=== PATIENT | female | born 1955 | race Caucasian/White ===

== ENCOUNTER 2019-09-12 20:19 | Inpatient (IN) | payer SELFPAY ==
[~2019-09-12] VITALS: Ht 167.6 cm; Wt 79.4 kg
[2019-09-12 20:25] VITALS: BP_SYST 138
--- NOTE | 2019-09-12 20:25 | NUR ---
Placed in room 01 . Placed on gambling monitor, blood pressure machine and pulse oximeter. To gown for exam. Side rails up.
--- NOTE | 2019-09-12 20:30 | NUR ---
Dr. Hopper bedside for Pt eval
--- NOTE | 2019-09-12 20:35 | NUR ---
Pt BIB family to ED C/O left sided chest pain with radiation to the throat that began between 6pm and 7pm today. Pain is described as pressure like and noted to be constant since onset. Pain was associated with shortness of breath. Pt also reports feeling hot and cold with sweat when the pain began. She sates shortness of breath has improved upon arrival. No other injuries and or complaints noted VSS no s/s of acute distress Resting on gurney rails up
[2019-09-12] MEDS ORDERED: ASPIRIN 81 MG TAB.CHEW PO ONE (20:45)
[2019-09-12 20:59] LABS: BASOPHILS % (AUTO) 0.4 % (0.0-2.0); EOSINOPHILS % (AUTO) 0.6 % (0.0-4.0); HEMATOCRIT 40.5 % (36-48); HEMOGLOBIN 13.7 g/dL (12.0-16.0); LYMPHOCYTES # (AUTO) 1.5 K/uL (1.0-5.5); LYMPHOCYTES % (AUTO) 19.9 % (20.5-51.5); MEAN CORPUSCULAR HEMOGLOBIN 30 pg (27-31); MEAN CORPUSCULAR HGB CONC 34 % (32-36); MEAN CORPUSCULAR VOLUME 88 fL (79.0-98.0); MONOCYTES # (AUTO) 0.5 K/uL (0.0-1.0); MONOCYTES % (AUTO) 7.2 % (1.7-9.3); NEUTROPHILS # (AUTO) 5.3 K/uL (1.8-7.7); NEUTROPHILS % (AUTO) 71.9 % (40.0-70.0); PLATELET COUNT (AUTO) 191 K/uL (130-430); RED BLOOD CELL COUNT(AUTO) 4.58 MIL/uL (4.2-6.2); RED CELL DISTRIBUTION WIDTH 13.3 % (9.0-15.0); WHITE BLOOD COUNT (AUTO) 7.4 K/uL (4.8-10.8)
[2019-09-12] MEDS ORDERED: NITROGLYCERIN 0.4 MG TAB.SUBL SL ONE (21:00)
[2019-09-12] MEDS ORDERED: ACETAMINOPHEN 500 MG TABLET PO ONE (21:00)
[2019-09-12 21:11] LABS: CALCIUM 8.9 mg/dL (8.4-11.0); CREATININE 0.98 mg/dL (0.55-1.30)
[2019-09-12 21:15] LABS: ALBUMIN 3.5 g/dL (3.4-4.8); TOTAL BILIRUBIN 0.6 mg/dL (0.0-1.0)
--- NOTE | 2019-09-12 21:19 | NUR ---
Pt states nitro effetive, chest discomfort feeling better
--- NOTE | 2019-09-12 21:20 | NUR ---
Pt family bedside for emotional support
--- NOTE | 2019-09-12 22:03 | NUR ---
Unable to do medication reconcilation due to pt not having the medications with her and unable to recall dosages and medication name.
[2019-09-12 22:40] LABS: BILIRUBIN,URINE NEGATIVE (NEGATIVE); CLARITY/URINE CLEAR (CLEAR); COLOR,URINE YELLOW (YELLOW); GLUCOSE,URINE 2+ (NEGATIVE); KETONES,URINE TRACE (NEGATIVE); LEUKOCYTE ESTERASE ,URINE NEGATIVE (NEGATIVE); NITRITE, URINE NEGATIVE (NEGATIVE); PH,URINE 5.5 (5.0-8.0); PROTEIN URINE NEGATIVE (NEGATIVE); UROBILINOGEN,URINE 0.2 (0.2-1.0)
[2019-09-12 22:45] LABS: BLOOD, URINE TRACE (NEGATIVE)
[2019-09-12] MEDS ORDERED: POTASSIUM CHLORIDE 20 MEQ TAB.PRT.SR PO ONE (22:45)
--- NOTE | 2019-09-12 22:50 | NUR ---
Dr. Hopper bedside for Pt update
[2019-09-12 23:07] LABS: BACTERIA,URINE FEW /HPF (None Seen); WBC,URINE 0-3 /HPF (0-3)
[2019-09-12] MEDS ORDERED: NITROGLYCERIN 0.4 MG TAB.SUBL SL PRN (23:15)
--- NOTE | 2019-09-12 23:20 | NUR ---
ADMISSION NOTE Received patient from ER via osei, received report from LIZZETTE MCCRAY. Patient admitted with diagnosis of CHEST PAIN. Patient oriented to hospital routine, call light, toileting and safety-patient verbalized understanding.
--- NOTE | 2019-09-12 23:28 | NUR ---
Dr. Bobby rounds: MD at bedside to assess and examine patient. New orders to be input by MD. RN to follow-up.
[2019-09-12 23:30] VITALS: BP_SYST 122
[2019-09-12] MEDS ORDERED: PANTOPRAZOLE SODIUM 40 MG TAB PO SCH (23:30)
--- NOTE | 2019-09-12 23:30 | NUR ---
Patient will be admitted to care of Dr. Bobby. Admitted to Telemetry unit. Will go to room 118. Belongings list completed. Summary report printed. Report will be given at bedside.
--- NOTE | 2019-09-12 23:30 | NUR ---
Transfer to Telemetry via ACLS protocol. Licensed nurse present. IV present no signs or symptoms of infiltration.
[2019-09-13] MEDS ORDERED: INSULIN REGULAR, HUMAN 100 UNITS/ML, 10 ML VIAL (humuLIN R) SUBCUT PRN ×2
[2019-09-13] MEDS ORDERED: DEXTROSE 50% JECT 50 ML DISP.SYRIN IVP PRN
[2019-09-13] MEDS ORDERED: ZOLPIDEM TARTRATE 5 MG TABLET PO PRN
[2019-09-13] MEDS ORDERED: cloNIDine HCL 0.1 MG TABLET PO PRN
[2019-09-13] MEDS: LR 1,000 ML IV SCH ×2 (00:14→09:27)
[2019-09-13] MEDS: DICLOFENAC SODIUM 25 MG TABLET.DR PO SCH ×2 (00:22)
--- NOTE | 2019-09-13 00:30 | NUR ---
NPO: Patient is now NPO for abdominal US after ordered medications were administered. Patient verbalizes understanding of NPO status. Bedside cleared of food and drinks. Call light with patient. Will continue monitoring.
--- NOTE | 2019-09-13 00:38 | NUR ---
CONSULT: CONSULT CALLED FOR DR. ENGLE I SPOKE WITH KELLEY LAW REASON FOR CONSULT: CHEST PAIN REQUESTING CONSULT: DR. WAGNER BROADCAST SUPERVISOR PHONE NUMBER: [phone]
[2019-09-13 00:42] VITALS: BP_SYST 125
[2019-09-13] MEDS ORDERED: POTASSIUM CHLORIDE 20 MEQ TAB.PRT.SR PO ONE (01:00)
--- NOTE | 2019-09-13 03:22 | NUR ---
Rounds: Patient is resting in bed, no acute distress. Even and unlabored respirations on room air. IV fluids infusing well. Call light is with patient. Will continue monitoring.
--- NOTE | 2019-09-13 06:35 | NUR ---
Closing note: Patient is awake in bed, friend at bedside. Patient shows no acute distress, tolerates room air. IV site patent and benign. Blood sugar this AM is 156, refused administration despite education. Patient stated that she is only prediabetic and does not take insulin at home. Patient has been kept NPO for abdominal US. All needs met. Safety and fall precautions maintained. Hourly rounding performed throughout shift. Will endorse care to dayshift RN.
[2019-09-13 06:49] LABS: BASOPHILS % (AUTO) 0.2 % (0.0-2.0); HEMOGLOBIN 13.6 g/dL (12.0-16.0); LYMPHOCYTES # (AUTO) 0.6 K/uL (1.0-5.5); LYMPHOCYTES % (AUTO) 4.3 % (20.5-51.5); MEAN CORPUSCULAR HEMOGLOBIN 30 pg (27-31); MEAN CORPUSCULAR HGB CONC 34 % (32-36); MEAN CORPUSCULAR VOLUME 88 fL (79.0-98.0); MONOCYTES # (AUTO) 0.2 K/uL (0.0-1.0); MONOCYTES % (AUTO) 1.5 % (1.7-9.3); NEUTROPHILS # (AUTO) 12.3 K/uL (1.8-7.7); PLATELET COUNT (AUTO) 206 K/uL (130-430); RED BLOOD CELL COUNT(AUTO) 4.53 MIL/uL (4.2-6.2); RED CELL DISTRIBUTION WIDTH 13.2 % (9.0-15.0); WHITE BLOOD COUNT (AUTO) 13.1 K/uL (4.8-10.8)
[2019-09-13] MEDS ORDERED: PANTOPRAZOLE SODIUM 40 MG TAB PO SCH (07:00)
--- NOTE | 2019-09-13 07:20 | NUR ---
OPENING NOTE: Received SBAR report and plan of care from rn shift mgr RN
[2019-09-13 07:28] LABS: CHOLESTEROL 184 mg/dL (<200); HDL CHOLESTEROL 54 mg/dL (>55); LDL CHOLESTEROL 114 mg/dL (<100); TRIGLYCERIDES 101 mg/dL (30-150)
[2019-09-13 07:33] LABS: ALANINE AMINOTRANSFERASE 47 U/L (12-78); ALBUMIN 3.4 g/dL (3.4-4.8); ANION GAP 10 (5-15); ASPARTATE AMINOTRANSFERASE 25 U/L (10-37); CALCIUM 8.5 mg/dL (8.4-11.0); CHLORIDE 101 mmol/L (98-107); GLUCOSE 157 mg/dL (70-99); POTASSIUM 4.3 mmol/L (3.5-5.1); SODIUM SERUM 132 mmol/L (136-145); THYROID STIMULATING HORMONE 1.64 uIu/mL (0.36-3.74); TOTAL BILIRUBIN 0.6 mg/dL (0.0-1.0); UREA NITROGEN, BLOOD 13 mg/dL (8-21)
[2019-09-13 07:41] LABS: GFR AFRICAN AMERICAN 81 mL/min (>90)
--- NOTE | 2019-09-13 07:50 | NUR ---
Secondary Connector Armature at bedside for abdominal ultrasound
[2019-09-13 08:00] VITALS: BP_SYST 117
--- NOTE | 2019-09-13 08:42 | NUR ---
Nutrition Update Low Scale 18 noted. Pt admitted for chest pain. Diet: 2 gm Na, CCHO low carb-45 gm BMI: 28.2 kg/m2 RD to follow per nutrition care standards.
[2019-09-13] MEDS ORDERED: DICLOFENAC SODIUM 25 MG TABLET.DR PO SCH (09:00)
[2019-09-13] MEDS ORDERED: ASPIRIN 81 MG TABLET(ECOTRIN) PO SCH (09:00)
--- NOTE | 2019-09-13 09:00 | NUR ---
Patient awake, AOx4, verbal and ambulatory. Patient resting in bed with friend at bedside. Patient kept NPO pending US ABD. LT FA #20 peripheral IV intact and patent with IVF pump running. Patient denies chest pain at this time, denies SOB, breathing is even and unlabored, no signs of distress noted.
--- NOTE | 2019-09-13 11:00 | NUR ---
Patient up in chair chatting with friend, no complaint of pain or SOB, no signs of distress noted.
[2019-09-13 11:19] VITALS: BP_SYST 135
--- NOTE | 2019-09-13 11:25 | NUR ---
MADE A F/U CALL TO DR ENGLE, RE: CONSULT FOR CHEST PAIN. SPOKE TO JOSE.
--- NOTE | 2019-09-13 11:45 | NUR ---
Patient refused SSI saying she doesn't take it at home as her doctor told her she is only borderline diabetic.
[2019-09-13] MEDS ORDERED: ACETAMINOPHEN 325 MG TABLET PO PRN (12:15)
[2019-09-13] MEDS ORDERED: ACETAMINOPHEN 325 MG TABLET ONE (12:28)
--- NOTE | 2019-09-13 13:00 | NUR ---
Patient and family upset that doctors have not rounded yet. Assured patient that her MD and consulted vacation guide would for sure come by today but that I could not give her an exact time. Dr Ma was paged and he confirmed consult and that he would be by today. Dr Bobby was in the building and I told him family wanted to see him and he said he would come see them later on today.
--- NOTE | 2019-09-13 15:00 | NUR ---
Patient resting in bed, breathing is even and unlabored, patient denies chest pain, denies SOB, no signs of distress noted. Many friends/family in and out to visit today, 2 remain at bedside at this time.
[2019-09-13 15:33] VITALS: BP_SYST 120
--- NOTE | 2019-09-13 16:55 | NUR ---
Patient continues to refuse SSI with same reasoning, saying she doesn't take it at home as her doctor told her she is only borderline diabetic.
--- NOTE | 2019-09-13 17:00 | NUR ---
Patient awake, remains AOx4, friend at bedside. Patient denies chest pain, denies SOB, no signs of distress noted.
--- NOTE | 2019-09-13 17:07 | NUR ---
Dr Ma at bedside
--- NOTE | 2019-09-13 17:12 | NUR ---
ATTENDING MD DR WAGNER WAS CALLED, RE: DISCHARGE ORDER, CLEARED BY CARDIOLOGY DR ENGLE. SPOKE TO AQUILES.
[2019-09-13] MEDS ORDERED: SIMV40TA5 PO (17:20)
[2019-09-13] MEDS ORDERED: GLU500 PO (17:20)
[2019-09-13] MEDS ORDERED: ASA81 PO (17:20)
--- NOTE | 2019-09-13 17:41 | NUR ---
Patient removed tele box and IV, she says she is discharging home. I educated patient on importance of monitoring and her IVF, but she insisted. I told her that Dr Bobby would be at bedside shortly to speak with her.
--- NOTE | 2019-09-13 17:45 | NUR ---
Patient refused STAT lab draw, patient states that she is leaving does not want to stay here any longer.
[2019-09-13] MEDS ORDERED: cefTRIAXone 1 GM in D5W 50 ML IV SCH (18:00)
--- NOTE | 2019-09-13 18:00 | NUR ---
Patient refusing IV antibiotic therapy, patient pulled out own IV, stating that she was leaving AMA, no bleeding noted upon inspection.
--- NOTE | 2019-09-13 18:15 | NUR ---
Dr Bobby at bedside talking with patient. Patient agreed to allow blood work. At this time she will await results and hopefully discharge.
--- NOTE | 2019-09-13 19:20 | NUR ---
Initial Notes Received handoff report from offgoing nurse at the bedside. Patient is AAOx4, resting comfortably in bed. No SOB, no acute distress, no complaints of pain at this time. Bed is locked, in the lowest position, 2x side rails up, bed alarm is on. Call light is within reach. Currently patient does not have an IV site, and refuses IV. Patient refuses to put telemonitor box on at this time. Patient refuses SCDs. MD Dr Bobby aware and currently at the nurses station. Risks and benefits explained. Patient still refuses. Will continue with plan of care.
[2019-09-13 19:21] LABS: BASOPHILS % (AUTO) 0.2 % (0.0-2.0); HEMATOCRIT 37.8 % (36-48); HEMOGLOBIN 12.9 g/dL (12.0-16.0); LYMPHOCYTES # (AUTO) 1.2 K/uL (1.0-5.5); LYMPHOCYTES % (AUTO) 8.2 % (20.5-51.5); MEAN CORPUSCULAR HEMOGLOBIN 30 pg (27-31); MEAN CORPUSCULAR HGB CONC 34 % (32-36); MEAN CORPUSCULAR VOLUME 87 fL (79.0-98.0); MONOCYTES % (AUTO) 7.1 % (1.7-9.3); NEUTROPHILS # (AUTO) 12.2 K/uL (1.8-7.7); NEUTROPHILS % (AUTO) 84.5 % (40.0-70.0); PLATELET COUNT (AUTO) 213 K/uL (130-430); RED BLOOD CELL COUNT(AUTO) 4.34 MIL/uL (4.2-6.2); RED CELL DISTRIBUTION WIDTH 13.9 % (9.0-15.0); WHITE BLOOD COUNT (AUTO) 14.4 K/uL (4.8-10.8)
--- NOTE | 2019-09-13 19:21 | NUR ---
Gave SBAR report and endorsed plan of care to manufacturing shift supervisor RN
--- NOTE | 2019-09-13 19:25 | NUR ---
Called lab regarding pending labs for the patient. Dr Bobby requested for the labs. Patient stated that they were going to go AMA earlier today, but is staying per Dr Bobby recommendations and waiting for lab results. Lab stated they will provide results soon.
[2019-09-13 19:40] LABS: CALCIUM 8.3 mg/dL (8.4-11.0); CREATININE 0.85 mg/dL (0.55-1.30); POTASSIUM 3.9 mmol/L (3.5-5.1)
[2019-09-13] MEDS ORDERED: MAG-AL HYDROX/SIMETH 30 ML UDC PO PRN (19:45)
--- NOTE | 2019-09-13 19:45 | NUR ---
Dr Bobby at the nurses station. Ordered to DC Tele, downgrade patient to Med-Surg. Also ordered Mylanta 30ml PO Q6PRN for Heartburn. Orders noted.
--- NOTE | 2019-09-13 19:55 | NUR ---
Patient refuses vital signs and refuses assessment at this time. States she has already been seen by the doctor recently, and the dayshift nurse. Family at the bedside states "we will be leaving soon, after we receive the results." Dr Bobby made aware.
--- NOTE | 2019-09-13 20:00 | NUR ---
Dr Bobby spoke with the patient and explained current lab results to the patient, and also informed the patient regarding WBC trending up. Dr Bobby states most likely there is an infection somewhere in the body. However, patient still refuses treatment at this time, and refuses antibiotics. Dr Bobby explained risks and benefits, but patient still refuses and states she wants to leave AMA. AMA paperwork signed by Dr Bobby and the patient. ID hospital band removed. Patient ambulated out of the hospital with steady gait. All belongings sent with the patient. Family to take the patient home via private vehicle.
[2019-09-13 20:05] VITALS: BP_SYST 120
[2019-09-13] MEDS ORDERED: SIMVASTATIN 40 MG TABLET PO SCH (21:00)
== END 2019-09-13 20:02 | disposition left against medical advice (07) | DRG 872 ==
LOC: SED 20:19 → STU 22:39
PROVIDERS: ADMIT Internal Medicine; ATTEND Internal Medicine
DX: A41.9 Sepsis, unspecified organism (principal); R07.89 Other chest pain; E11.9 Type 2 diabetes mellitus without complications; E78.5 Hyperlipidemia, unspecified; E66.9 Obesity, unspecified; E87.6 Hypokalemia; Z53.29 Procedure and treatment not carried out because of patient's decision for other reasons; Z79.899 Other long term (current) drug therapy; Z79.82 Long term (current) use of aspirin; Z68.28 Body mass index [BMI] 28.0-28.9, adult; Z90.89 Acquired absence of other organs; Z79.84 Long term (current) use of oral hypoglycemic drugs
CPT/HCPCS: 36415; 36600; 71045; 76700-TC; 80048; 80053; 80061; 81000-TC; 82009-TC; 82550-TC; 82803-TC; 82962; 83735-TC; 83880; 84439; 84443-TC; 84484; 85025; 85379; 93005; 93306; 99285; G0378; J0696; J7060; J7120